=== PATIENT | female | born 1965 | race Asian ===

== ENCOUNTER 2018-08-26 12:51 | Emergency (ER) | payer SELFPAY ==
[2018-08-26 12:58] VITALS: BP 147/95; PULSE 74; RESP 18; TEMP 37; O2SAT 99
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
--- NOTE | 2018-08-26 18:06 | NUR.NOTE ---
Nursing Note: Referral faxed to [facility] with Dr. Ruiz supply and distribution manager for telephone call. Pt used to have Eyad Lujan but pt left the area and has now returned. She prefers not to go back to him. Shanae Chen.
== END 2018-08-26 15:19 | disposition home or self-care (01) ==
LOC: ER 13:54
PROVIDERS: Emergency Provider Emergency Medicine; PCP Specialist/Technologist Athletic Trainer
DX: M17.12 Unilateral primary osteoarthritis, left knee (principal)
CPT/HCPCS: 29505; 99283; 99282; L1820

== ENCOUNTER 2018-11-06 17:01 | Emergency (ER) | payer SELFPAY ==
[2018-11-06 17:05] VITALS: BP 152/94; PULSE 62; RESP 14; TEMP 36.9; O2SAT 99
[2018-11-06 17:22] LABS: Bilirubin Negative (Negative); Blood Negative (Negative); Clarity Clear (Clear); Glucose Negative (Negative); Ketones Negative (Negative); Leukocyte Esterase Negative (Negative); Nitrite Negative (Negative); Urobilinogen 0.2 EU/dL (Up TO 0.2); pH 5.5 (5-8)
--- NOTE | 2018-11-06 17:55 | DI.CT_ITS ---
SYMPTOM/DIAGNOSIS: INCONTINENCE OF URINE, LT LOW ABD DISCOMFORT ABDOMEN AND PELVIC CT: CT examination of the abdomen and pelvis was performed with a bolus infusion of 91 cc's of Omnipaque 350. Images obtained through the lung bases are unremarkable. Note is made of an apparent 2 cm. hepatic cyst. Gallbladder is CT normal and no biliary dilatation is seen. Pancreas is unremarkable. Question wall thickening of the gastric antrum,. this is a nonspecific finding. Spleen is unremarkable in appearance. Abdominal aorta shows variant anatomy but is otherwise unremarkable. No abdominal or pelvic adenopathy. Small fat containing umbilical hernia noted. Adrenals are unremarkable except for a questioned 1 cm. left adrenal nodule of intermediate attenuation, this may not represent a discrete mass but may represent adrenal anatomy variant. MR of the adrenals suggested for further evaluation. There is a tiny non obstructing left mid pole renal calculus. Otherwise the kidneys and ureters are unremarkable in appearance with no evidence of obstruction. BEND SORTER structures are unremarkable. Appendix is normal. No evidence of diverticulitis or bowel obstruction. CONCLUSION: 1. Non obstructing left renal calculus. 2. Question adrenal nodule on the left, MR adrenal protocol scan suggested.
[2018-11-06 18:26] LABS: Abs Immature Grans 0.02 k/cumm (0.0-0.09); Absolute Basophil Count 0.07 k/cumm (0.0-0.2); Absolute Eosinophil Count 0.19 k/cumm (0.0-0.7); Absolute Lymphocyte Count 2.53 k/cumm (1.2-3.4); Absolute Monocyte Count 0.44 k/cumm (0.11-0.7); Eosinophils % 2.6; HCT 43.8 % (36.0-46.0); HGB 14.6 g/dL (12.0-15.5); Immature Grans % 0.3; Lymphocytes % 34.4; Mean Corp. HGB Concentration 33.3 g/dL (32.0-36.0); Mean Corpuscular Hemoglobin 31.5 pg (27.0-33.0); Mean Corpuscular Volume 94.4 fL (80-95); Mean Platelet Volume 9.7 fL (8.0-11.0); Neutrophils % 55.7; Platelet Count 376 x1000/uL (130-400); RBC 4.64 m/cumm (4.00-5.20); RBC Distribution Width 11.8 % (11.7-14.6); White Blood Cell Count 7.35 k/cumm (4.4-10.8)
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
[2018-11-06 18:44] LABS: ALT 18 U/L (12-78); AST 17 U/L (15-37); Albumin 4.1 g/dL (3.4-5.0); Alkaline Phosphatase 70 U/L (46-116); Anion Gap 10.5 mmol/L (3-11); BUN 18 mg/dL (7-18); Bilirubin, Total 0.3 mg/dL (0.2-1.0); CO2 27.5 mmol/L (21.0-32.0); CREATININE 1.09 mg/dL (0.55-1.02); Calcium 9.7 mg/dL (8.5-10.1); Chloride 105 mmol/L (98-107); Estimated GFR 52.11 (mL/min/1.73m2); Glucose 101 mg/dL (70-100); Lipase 230 U/L (73-393); Potassium 3.8 mmol/L (3.5-5.1); Sodium 143 mmol/L (136-145); Total Protein 8.8 g/dL (6.4-8.2)
[2018-11-06] MEDS: Normal Saline Flush 10 ML SYR IVP (18:44)
[2018-11-06] MEDS: Normal Saline 1,000 ML 125 ML IV (18:45)
[2018-11-06] MEDS: Omnipaque 350 MG/ML 100 ML BTL IJ (19:16)
--- NOTE | 2018-11-06 19:42 | DI.VRAD_ITS ---
EXAM: CT Abdomen and Pelvis With Contrast EXAM DATE/TIME: 11/06/2018 5:57 PM CLINICAL HISTORY: 53 years old, female; Abdominal pain; Localized; Left lower quadrant (llq); Patient HX: Incontinence urine, left lower abd discomfort 2mo TECHNIQUE: Imaging protocol: Axial computed tomography images of the abdomen and pelvis with intravenous contrast. Coronal and sagittal reformatted images were created and reviewed. COMPARISON: RENAL,PELVIS TRANSVAG US 03/05/2017 2:04 PM FINDINGS: Lungs: Linear atelectasis or scarring in the left lower lung. Liver: Hepatic cyst. Gallbladder and bile ducts: Normal. No calcified stones. No ductal dilation. Pancreas: Normal. No ductal dilation. Spleen: Normal. No splenomegaly. Adrenals: 1.1 cm 80 Hounsfield unit nodular region, left adrenal gland, axial image 28. This does not fulfill the criteria for an adenoma. Kidneys and ureters: Nonobstructive left renal calculus, axial image 34. No hydronephrosis. Stomach and bowel: Normal. No obstruction. No mucosal thickening. Appendix: No evidence of appendicitis. Intraperitoneal space: Normal. No free air. No significant fluid collection. Vasculature: Normal. No abdominal aortic aneurysm. Lymph nodes: Normal. No enlarged lymph nodes. Bladder: Some midline urinary bladder thickening anteriorly, axial image 73; sagittal image 65. Reproductive: Nonspecific gas within the vaginal canal. This can be seen normally or with recent instrumentation/infection. Bones/joints: No acute fracture. No dislocation. Skeletal degenerative changes. Disc space narrowing, L4-5, with corresponding vacuum phenomenon. Scattered sclerotic foci in the bones. In the absence of known malignancy, these most likely represents bone islands. Soft tissues: Small fat containing umbilical hernia. IMPRESSION: 1. Some midline urinary bladder thickening anteriorly. This can be seen with infection or under distention. Pathology not entirely excluded. 2. Nonobstructive left renal calculus. 3. Nodular region in the left adrenal gland which does not fulfill the criteria for an adenoma. This can be further evaluated with an adrenal mass protocol CT scan or MRI. Other findings/details as above. Dictated and Authenticated by: Tonya Hayward MD. Ordering:ELVIS Salazar MD
[2018-11-06 19:58] VITALS: BP 157/81; PULSE 68; RESP 16; O2SAT 100
[2018-11-06] MEDS: Cephalexin 500 MG CAP PO (20:43)
--- NOTE | 2018-11-06 21:56 | NUR.NOTE ---
faxed referal 11/06/18Nursing Note:
== END 2018-11-06 20:48 | disposition home or self-care (01) ==
PROVIDERS: Emergency Provider Student in an Organized Health Care Education/Training Program; PCP Specialist/Technologist Athletic Trainer
DX: E27.9 Disorder of adrenal gland, unspecified (principal); R03.0 Elevated blood-pressure reading, without diagnosis of hypertension; R39.81 Functional urinary incontinence; N20.0 Calculus of kidney
CPT/HCPCS: 36415; 80053; 83690; 96360; 96361; 99285; 74177; 81003; 85025; 87086; 99284; J3490

== ENCOUNTER 2018-11-18 00:45 | Outpatient (CLI) | payer SELFPAY ==
[2018-11-18] MEDS: Normal Saline Flush 10 ML SYR IVP (15:30)
[2018-11-18] MEDS: Gadoterate meglumine 20 ML VIAL 11 ML IVP (15:31)
--- NOTE | 2018-11-18 15:37 | DI.MRI_ITS ---
SYMPTOM/DIAGNOSIS: ADRENAL NODULE E27.8 MRI ABDOMEN: Comparison is made with CT of the abdomen and pelvis dated 06 November 2018. The exam is limited by patient motion and equipment limitations. Field of view includes the entire upper abdomen. No adrenal nodule is visible. The findings on CT appear to be elated to vascular structures adjacent to the adrenal and not an actual nodule.
== END 2018-11-18 01:05 ==
PROVIDERS: PCP Specialist/Technologist Athletic Trainer; Visit Provider Physician Assistant Medical
DX: E27.8 Other specified disorders of adrenal gland (principal)
CPT/HCPCS: 74183

== ENCOUNTER 2019-01-12 12:58 | Outpatient (CLI) | payer SELFPAY ==
--- NOTE | 2019-01-12 15:58 | DI.RAD_ITS ---
EXAM: XR HAND LT COMPLETE INDICATION: LT HAND PAIN [id number]. COMPARISON: No exams were available for comparison TECHNIQUE: 2D digital imaging was performed. FINDINGS: No bony or joint abnormality is seen.
== END 2019-01-12 13:18 ==
PROVIDERS: PCP Specialist/Technologist Athletic Trainer; Visit Provider Internal Medicine Hematology
DX: M79.642 Pain in left hand (principal)
CPT/HCPCS: 73130

== ENCOUNTER 2019-05-25 12:26 | Outpatient (REF) | payer OTHER, SELFPAY ==
--- NOTE | 2019-05-25 10:30 | PAPFT_PTH ---
PATIENT: Charo Horton LOC: [facility]#:[id number] AGE/SX: 53/F ROOM: RE05/25/[address]: Estefanía Todd : 1965 BED: DIS: 05/25/2019 SPEC #: [id number] RECD: 05/26/19 12:41 STATUS: PRATIMA RELuis Miguel #: [id number] RUBEN: 05/25/19 10:[address]: Estefanía Todd DEPT: FA Cytology RECD BY: Opal Stout ENTERED: 05/26/19 12:41 SP TYPE: PAPFT OTHR DR: Dharmesh Lujan Tissues: 1 - CX/ENDOCX FOR PAP SMEARS Procedures: PAP THIN PREP/[facility] Screening HPV DNA PROBE Comments: [id number]
[2019-05-27 08:59] LABS: Hepatitis B Surface Ag Negative (Negative)
[2019-05-27 10:23] LABS: HIV-1/2 Ag & Ab Screen Negative (Negative)
[2019-05-27 11:14] LABS: Syphilis Serology (RPR) Negative (Negative)
[2019-05-27 15:17] LABS: Chlamydia Result Negative (Negative); GC Result Negative (Negative)
== END 2019-05-25 12:46 ==
LOC: NCHCN 12:26
PROVIDERS: PCP Specialist/Technologist Athletic Trainer; Visit Provider Nurse Practitioner Family
DX: Z11.3 Encounter for screening for infections with a predominantly sexual mode of transmission (principal); Z91.49 Other personal history of psychological trauma, not elsewhere classified; Z11.4 Encounter for screening for human immunodeficiency virus [HIV]; Z12.4 Encounter for screening for malignant neoplasm of cervix; Z11.59 Encounter for screening for other viral diseases; Z01.419 Encounter for gynecological examination (general) (routine) without abnormal findings
CPT/HCPCS: 87340; 87389; 87491; 87591; 88142; 86592; 87480; 87510; 87624; 87660

== ENCOUNTER 2019-07-08 09:06 | Outpatient (REF) | payer OTHER, SELFPAY ==
[2019-07-08 19:33] LABS: Calculated LDL 179 mg/dL (<100); Cholesterol 250 mg/dL (<200); HDL Cholesterol 53 mg/dL (40-60); Triglyceride 90 mg/dL (<150)
[2019-07-08 19:43] LABS: Uric Acid 9.5 mg/dL (2.6-6.0)
== END 2019-07-08 09:26 ==
LOC: NCHCN 09:06
PROVIDERS: PCP Specialist/Technologist Athletic Trainer; Visit Provider Nurse Practitioner Family
DX: M25.562 Pain in left knee (principal); Z00.00 Encounter for general adult medical examination without abnormal findings; G56.02 Carpal tunnel syndrome, left upper limb; Z13.220 Encounter for screening for lipoid disorders
CPT/HCPCS: 80061; 84550

== ENCOUNTER 2019-09-07 09:52 | Outpatient (REF) | payer MEDICAID, SELFPAY ==
[2019-09-07 20:00] LABS: Anion Gap 7.1 mmol/L (3-11); BUN 17 mg/dL (7-18); CO2 28.9 mmol/L (21.0-32.0); CREATININE 0.91 mg/dL (0.55-1.02); Calcium 9.3 mg/dL (8.5-10.1); Chloride 107 mmol/L (98-107); Glucose 110 mg/dL (74-106); Potassium 4.2 mmol/L (3.5-5.1); Sodium 143 mmol/L (136-145); Uric Acid 7.1 mg/dL (2.6-6.0)
== END 2019-09-07 10:12 ==
LOC: NCHCN 09:52
PROVIDERS: PCP Specialist/Technologist Athletic Trainer; Visit Provider Nurse Practitioner Family
DX: E78.5 Hyperlipidemia, unspecified (principal); E79.0 Hyperuricemia without signs of inflammatory arthritis and tophaceous disease
CPT/HCPCS: 80048; 84550

== ENCOUNTER 2019-10-15 20:03 | Emergency (ER) | payer MEDICAID, SELFPAY ==
[2019-10-15 20:11] VITALS: BP 173/91; PULSE 74; RESP 16; TEMP 36.3; O2SAT 100
--- NOTE | 2019-10-15 20:15 | DI.CT_ITS ---
EXAM: CT HEAD NECK WO CLINICAL HISTORY: posterior head and neck discomfort. TECHNIQUE: Imaging Protocol: Axial computed tomography images with coronal and sagittal reformatted images were created and reviewed COMPARISON: No exams were available for comparison FINDINGS: Head CT Ventricles and Extra axial spaces: Normal in size and morphology for the patient's age. Hemorrhage: None. Cerebral parenchyma: Normal. Midline shift: None. Brainstem/Cerebellum: Normal. Calvarium: Normal. Visualized Paranasal sinuses/Mastoids: Clear. Cervical Spine CT BONES: Vertebral body heights are maintained. There are mild degenerative disc changes, greatest at C3-4.. Alignment is normal. There is no evidence of acute fracture. SOFT TISSUES: No paraspinal hematoma. The airway appears intact. No pneumothorax at the visualized l davie apices. IMPRESSION: No acute abnormality. RADIATION DOSE DELIVERED: Total DLP DATA REPOSITORY: All CT scans at this facility are submitted to the National Radiology Data Registry (NRDR) Dose Index Registry (DIR) with the [employer] (ACR). RADIATION OPTIMIZATION: All CT scans at this facility use at least one of these dose optimization te chniques: automated exposure control; mA and/or kV adjustment per patient size (includes targeted exa ms where dose is matched to clinical indication); or iterative reconstruction.
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
[2019-10-15] MEDS: Cyclobenzaprine 10 MG TAB PO (20:27)
--- NOTE | 2019-10-15 21:00 | DI.VRAD_ITS ---
PROCEDURE INFORMATION: Exam: CT Head Without Contrast Exam date and time: 10/15/2019 8:25 PM Age: 54 years old Clinical indication: Other: Posterior head and neck discomfort TECHNIQUE: Imaging protocol: Computed tomography of the head without contrast. COMPARISON: No relevant prior studies available. FINDINGS: Brain: Normal. No hemorrhage. Unremarkable white matter. No mass effect. Ventricles: Normal. No ventriculomegaly. Bones/joints: Unremarkable. No acute fracture. Sinuses: Visualized sinuses are unremarkable. No fluid levels. Mastoid air cells: Visualized mastoid air cells are well aerated. Soft tissues: Unremarkable. IMPRESSION: No evidence for acute intracranial abnormality. PROCEDURE INFORMATION: Exam: CT Cervical Spine Without Contrast Exam date and time: 10/15/2019 8:25 PM Age: 54 years old Clinical indication: Other: Posterior head and neck discomfort TECHNIQUE: Imaging protocol: Computed tomography images of the cervical spine without contrast. COMPARISON: No relevant prior studies available. FINDINGS: Vertebrae: Cervical spondylosis with mild central stenosis C3-C4. Vertebral body height well preserved. C2-C3: No significant disc protrusion. No severe spinal canal stenosis. No significant neural foraminal narrowing. C3-C4: No significant disc protrusion. No severe spinal canal stenosis. No significant neural foraminal narrowing. C4-C5: No significant disc protrusion. No severe spinal canal stenosis. No significant neural foraminal narrowing. C5-C6: No significant disc protrusion. No severe spinal canal stenosis. No significant neural foraminal narrowing. C6-C7: No significant disc protrusion. No severe spinal canal stenosis. No significant neural foraminal narrowing. C7-T1: No significant disc protrusion. No severe spinal canal stenosis. No significant neural foraminal narrowing. Soft tissues: Unremarkable. Vasculature: Bilateral calcified carotid plaque. Lungs: Lung apices are normal. IMPRESSION: Mild spondylosis with stenosis C3-C4. No acute abnormality evident. Dictated and Authenticated by: Geovanna Knight MD. Ordering:DARRON Jordan MD
[2019-10-15 21:18] VITALS: BP 146/94; PULSE 60; RESP 16; TEMP 36.7; O2SAT 100
[2019-10-15] MEDS: Cyclobenzaprine 10 MG TAB, 3 TABS/BTL PO (21:37)
== END 2019-10-15 22:15 | disposition home or self-care (01) ==
PROVIDERS: Emergency Provider Emergency Medicine; PCP Nurse Practitioner Family
DX: R51 Headache (principal); M54.2 Cervicalgia; M62.838 Other muscle spasm
CPT/HCPCS: 99284; 70450; 70490

== ENCOUNTER 2020-01-10 13:23 | Observation (INO) | payer MEDICAID, SELFPAY ==
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
[2020-01-10 13:33] VITALS: BP 134/87; PULSE 72; RESP 18; TEMP 36.6; O2SAT 97
[2020-01-10 13:58] LABS: Abs Immature Grans 0.03 10^3/uL (0.0-0.06); Absolute Basophil Count 0.05 10^3/uL (0.0-0.2); Absolute Eosinophil Count 0.17 10^3/uL (0.0-0.7); Absolute Lymphocyte Count 1.98 10^3/uL (1.2-3.4); Absolute Monocyte Count 0.52 10^3/uL (0.1-0.8); Absolute Neutrophil Count 5.67 10^3/uL (1.2-6.7); Basophils % 0.6; HCT 37.2 % (36.0-46.0); HGB 13.5 g/dL (11.2-15.7); Immature Grans % 0.4; Lymphocytes % 23.5; MCH 32.5 pg (27.0-33.0); MCHC 36.3 % (32.0-36.0); MCV 89.4 fL (80-95); MPV 8.7 fL (8.0-11.0); Monocytes % 6.2; Neutrophils % 67.3; Nucleated RBC 0 %; Platelet Count 452 10^3/uL (130-400); RBC 4.16 10^6/uL (3.93-5.22); RDW 11.5 % (11.7-14.6); RDW-SD 36.7 fL; WBC 8.42 10^3/uL (4.4-10.8)
[2020-01-10 14:17] LABS: ALT 23 U/L (14-59); AST 28 U/L (15-37); Alkaline Phosphatase 75 U/L (46-116); Anion Gap 6.4 mmol/L (3-11); BUN 10 mg/dL (7-18); Bilirubin, Total 0.6 mg/dL (0.2-1.0); CO2 28.6 mmol/L (21.0-32.0); CREATININE 0.75 mg/dL (0.55-1.02); Calcium 9.3 mg/dL (8.5-10.1); Chloride 87 mmol/L (98-107); Glucose 132 mg/dL (74-106); Lipase 162 U/L (73-393); Magnesium 1.7 mg/dL (1.8-2.4); Potassium 4.2 mmol/L (3.5-5.1); Total Protein 8.3 g/dL (6.4-8.2)
[2020-01-10 14:18] LABS: Sodium 122 mmol/L (136-145); Troponin I < 0.05 ng/mL (<0.06)
[2020-01-10] MEDS: Normal Saline 1,000 ML 1000 ML IV (14:20)
[2020-01-10] MEDS: LORazepam 2 MG/ML VIAL 0.5 MG IVP (14:33)
[2020-01-10] MEDS: Ondansetron 4 MG/2 ML VIAL IVP (14:34)
[2020-01-10] MEDS: MAGNESIUM SULFATE 1 GM/100 ML BAG IVPB (14:40)
--- NOTE | 2020-01-10 14:45 | RT.EKG_ITS ---
APPROVED REPORT Exam: Resting ECG Patient Location: E HR:64 bpm ECG Measurements Heart Rate 64 AXIS ND 142 P 34 QRSd 95 QRS 6 QT 441 T 25 QTc 454 Conclusion Sinus rhythm...normal P axis, V-rate 60- 99
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
--- NOTE | 2020-01-10 15:44 | NUR.NOTE ---
Pt ordered dinner and is up to the side of bead to eat.
[2020-01-10 16:25] VITALS: BP 147/83; PULSE 75; RESP 18; TEMP 36.6; O2SAT 99
[2020-01-10] MEDS: Pantoprazole 40 MG VIAL IVP (17:03)
[2020-01-10] MEDS: Normal Saline Flush 10 ML SYR ×2 (17:03→21:18)
[2020-01-10 19:20] VITALS: BP 115/77; PULSE 72; RESP 18; TEMP 37.4; O2SAT 100
[2020-01-10 19:47] LABS: Anion Gap 4.5 mmol/L (3-11); BUN 13 mg/dL (7-18); CO2 29.5 mmol/L (21.0-32.0); CREATININE 1.03 mg/dL (0.55-1.02); Calcium 8.7 mg/dL (8.5-10.1); Chloride 100 mmol/L (98-107); Estimated GFR 55.43 (mL/min/1.73m2); Glucose 117 mg/dL (74-106); Potassium 4.1 mmol/L (3.5-5.1); Sodium 134 mmol/L (136-145)
[2020-01-10] MEDS: Oxybutynin 5 MG TAB PO (19:57)
[2020-01-10] MEDS: Melatonin 3 MG TAB 9 MG PO (21:17)
[2020-01-10 21:38] LABS: Osmolality Serum 259 mOsm/kg (275-295)
[2020-01-11 03:00] VITALS: BP 100/67; PULSE 74; RESP 18; TEMP 36.9; O2SAT 98
[2020-01-11 07:13] LABS: Anion Gap 5.6 mmol/L (3-11); BUN 16 mg/dL (7-18); CO2 27.4 mmol/L (21.0-32.0); CREATININE 0.97 mg/dL (0.55-1.02); Calcium 8.8 mg/dL (8.5-10.1); Chloride 103 mmol/L (98-107); Glucose 107 mg/dL (74-106); Magnesium 2.2 mg/dL (1.8-2.4); Potassium 4.2 mmol/L (3.5-5.1); Sodium 136 mmol/L (136-145)
[2020-01-11 07:36] VITALS: BP 100/64; PULSE 54; RESP 19; TEMP 37; O2SAT 97
[2020-01-11 08:11] LABS: Bilirubin Negative (Negative); Blood Negative (Negative); Clarity Clear (Clear); Glucose Negative (Negative); Ketones Negative (Negative); Leukocyte Esterase Negative (Negative); Nitrite Negative (Negative); Specific Gravity 1.015 (1.005-1.025); Urobilinogen 0.2 EU/dL (Up TO 0.2)
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
[2020-01-11 08:16] LABS: COVID-19 RT-PCR UVMMC Result Negative (Negative)
[2020-01-11] MEDS: Vitamins B Comp w/C TAB 1 TAB PO (09:13)
[2020-01-11] MEDS: Oxybutynin 5 MG TAB PO (09:13)
[2020-01-11] MEDS: Allopurinol 100 MG TAB PO (09:13)
[2020-01-11 11:03] VITALS: BP 104/65; PULSE 70; RESP 19; TEMP 36.9; O2SAT 98
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
[2020-01-11 19:50] LABS: Osmolality, Urine 253 mOsm/kg (150-1,150)
--- NOTE | 2020-01-20 13:41 | PDOC.CMPRO ---
Care Management Progress Note [facility] called to gather information re: Charo's referral. She reported speaking with Charo as well. CM provided case review and information, as well as action items for referral. Leonarda Alvares reported Zee Real, [facility] RN would likely be outreaching as well as she would be working with Charo moving forward.
== END 2020-01-11 15:10 | disposition home or self-care (01) ==
LOC: ER 16:14 → MS 16:21
PROVIDERS: Admitting Provider Internal Medicine; Emergency Provider Physician Assistant; PCP Nurse Practitioner Family; Visit Provider Internal Medicine
DX: E87.1 Hypo-osmolality and hyponatremia (principal); Z79.899 Other long term (current) drug therapy; M10.9 Gout, unspecified; R11.2 Nausea with vomiting, unspecified
CPT/HCPCS: 36415; 80048; 80053; 83690; 83935; 93005; 96361; 96365; 99217; 99219; 99285; U0003; 81003; 83735; 83930; 84484; 85025; 93010; G0378; J2060; J2405; J3475

== ENCOUNTER 2020-01-19 09:31 | Outpatient (REF) | payer MEDICAID, SELFPAY ==
[2020-01-19 19:15] LABS: Uric Acid 6.5 mg/dL (2.6-6.0)
== END 2020-01-19 09:51 ==
LOC: NCHCN 09:31
PROVIDERS: PCP Nurse Practitioner Family; Visit Provider Nurse Practitioner Family
DX: E79.0 Hyperuricemia without signs of inflammatory arthritis and tophaceous disease (principal)
CPT/HCPCS: 84550

== ENCOUNTER 2020-02-23 01:23 | Outpatient (CLI) | payer MEDICAID, SELFPAY ==
--- NOTE | 2020-02-23 08:20 | DI.MAMMO_ITS ---
EXAM: MG MAMMO SCREENING CLINICAL HISTORY: SCREENING,[facility],Z00.00. TECHNIQUE: Bilateral full field digital CC and MLO mammographic images were obtained with 3D tomosyn thesis and utilizing computer aided detection (CAD). COMPARISON: Prior mammogram performed March 2017. FINDINGS: There are no CAD designation. In the left breast there is a noncalcified nodule located 3.5 centimetres in from the nipple, measuri ng 10 x 8 millimeters. This is in the lower outer quadrant. There are no malignant-appearing microc alcification groups in this region nor elsewhere in either breast. No focal findings in the opposite -right breast. There is no new architectural distortion nor skin thickening-retraction. IMPRESSION: 1. In the left breast there is a noncalcified lobulated nodule measuring 11 by 8 millimeters, a 3.5 c entimetres in from nipple. Spot compression 3D view plus left breast ultrasound recommended. BI-RADS Category 0 - Assessment Incomplete: Need additional imaging evaluation Breast Density - Category B - Scattered areas of fibroglandular density Breast density Category C or D implies that the patient has dense breast tissue. Dense breast tissue can make it harder to find cancer on a mammogram. Dense breast tissue is also associated with an incr eased risk of breast cancer. This information about the result of the mammogram report was provided to the patient to raise their awareness. Use this report when you speak with the patient about their risks for breast cancer, which includes their family history. At that time, you may recommend additional screening tests (Ultrasoun d or MRI) as these tests may add significant information. A negative radiographic report should not delay biopsy if a dominant or clinically suspicious mass is present. Up to ten percent of cancers are not identified on mammography. A negative report may reinforce clinical impression. Adenosis and dense breasts may obscure an underlying neoplasm. False positive reports average 6 to 10%. Patient will receive a letter notifying them of these results.
== END 2020-02-23 01:43 ==
PROVIDERS: PCP Nurse Practitioner Family; Visit Provider Nurse Practitioner Family
DX: N63.23 Unspecified lump in the left breast, lower outer quadrant (principal); Z12.31 Encounter for screening mammogram for malignant neoplasm of breast; Z00.00 Encounter for general adult medical examination without abnormal findings
CPT/HCPCS: 77063; 77067

== ENCOUNTER 2020-03-07 00:26 | Outpatient (CLI) | payer MEDICAID, SELFPAY ==
--- NOTE | 2020-03-07 | DI.MAMMO_ITS ---
EXAM: MG MAMMO SCREEN CALL BACK UNI CLINICAL HISTORY: F/U MAMMO, LT BREAST NODULE. TECHNIQUE: Unilateral spot mammographic images were obtained with 3D tomosynthesis and utilizing C[employer]on[employer]abin puter aided detection (CAD). . Breast Ultrasound was also performed. COMPARISON: Prior mammograms dating back to , the most recent being . This additional imaging was performed due to findings described on the recent screening mammogram of . Prior mammograms dating back to 2011, the most recent being the recent screening mammo 02/23/2020. FINDINGS: Additional mammographic views performed today reveal this nodule to be a true finding. Ultrasound performed today reveals reveals this nodule to be a wider than taller benign appear cyst m easuring 10 x 5 millimeters.. Is located at 6 o'clock position IMPRESSION: There is a 10 x 5 millimeter benign cyst which corresponds to the nodule on the mammogram. This is a t 6 o'clock position Appropriate follow-up is to keep this patient yearly mammogram schedule, with earlier imaging if a se lf detected breast change is noted. Recommend repeat ultrasound next year.. BI-RADS Category 2 - Benign Findings Breast Density - Category B - Scattered areas of fibroglandular density Breast density Category C or D implies that the patient has dense breast tissue. Dense breast tissue can make it harder to find cancer on a mammogram. Dense breast tissue is also associated with an incr eased risk of breast cancer. This information about the result of the mammogram report was provided to the patient to raise their awareness. Use this report when you speak with the patient about their risks for breast cancer, which includes their family history. At that time, you may recommend additional screening tests (Ultrasoun d or MRI) as these tests may add significant information. A negative radiographic report should not delay biopsy if a dominant or clinically suspicious mass is present. Up to ten percent of cancers are not identified on mammography. A negative report may reinforce clinical impression. Adenosis and dense breasts may obscure an underlying neoplasm. False positive reports average 6 to 10%. Patient will receive a letter notifying them of these results. Ten by 5 millimeters
--- NOTE | 2020-03-07 | DI.US_ITS ---
EXAM: US BREAST LT LIMITED CLINICAL HISTORY: F/U MAMMO, LT BREAST NODULE TECHNIQUE: Ultrasound left breast performed using standard protocol. COMPARISON: Recent 02/23/2020 mammo was reviewed FINDINGS: There is 10 x 5 millimeter benign cyst at the 6 o'clock position which corresponds to the finding on the mammogram. No solid lesions. Benign lymph nodes noted in the ipsilateral axilla. IMPRESSION: There is a benign 10 x 5 millimeter cyst at the 6 o'clock position which corresponds to the mammograp hic finding. BI-RADS Category 2 - Benign Findings DATA REPOSITORY:
== END 2020-03-07 00:46 ==
PROVIDERS: PCP Nurse Practitioner Family; Visit Provider Nurse Practitioner Family
DX: N60.02 Solitary cyst of left breast (principal)
CPT/HCPCS: 76642; 77063; 77067

== ENCOUNTER 2020-04-25 16:01 | Outpatient (REF) | payer MEDICAID, SELFPAY ==
[2020-04-25 17:06] LABS: Anion Gap 8.4 mmol/L (3-11); BUN 16 mg/dL (7-18); CO2 28.6 mmol/L (21.0-32.0); CREATININE 0.9 mg/dL (0.55-1.02); Calcium 9.7 mg/dL (8.5-10.1); Chloride 105 mmol/L (98-107); Glucose 113 mg/dL (74-106); Magnesium 2.1 mg/dL (1.8-2.4); Potassium 4.5 mmol/L (3.5-5.1); Sodium 142 mmol/L (136-145); TSH 1.95 uIU/mL (0.36-3.74); Uric Acid 5.4 mg/dL (2.6-6.0)
[2020-04-25 17:53] LABS: HDL Cholesterol 66 mg/dL (40-60); LDL CHOLESTEROL 144 mg/dL (<100)
[2020-04-26 04:25] LABS: Vitamin D 25 Total 68.3 ng/ml (30-100)
== END 2020-04-25 16:02 | disposition home or self-care (01) ==
LOC: NCHCN 16:01
PROVIDERS: PCP Nurse Practitioner Family; Visit Provider Nurse Practitioner Family
DX: M54.2 Cervicalgia (principal); E83.42 Hypomagnesemia; E87.1 Hypo-osmolality and hyponatremia; E79.0 Hyperuricemia without signs of inflammatory arthritis and tophaceous disease; R53.83 Other fatigue; M85.88 Other specified disorders of bone density and structure, other site
CPT/HCPCS: 80048; 82306; 83721; 83718; 83735; 84443; 84550

== ENCOUNTER 2020-08-03 04:21 | Outpatient (CLI) | payer MEDICAID, SELFPAY ==
--- NOTE | 2020-08-03 13:41 | DI.RAD_ITS ---
Exam(s) XR ABDOMEN FLAT UPRIGHT EXAM: 2D digital imaging was performed. CLINICAL HISTORY: KIDNEY STONE, N20.0, LOW BACK PAIN, M54.5. COMPARISON: CT CT ABDOMEN PELVIS W from 11/06/[address] ABDOMEN PELVIS W from 11/06/2018 TECHNIQUE: Supine and uprightSupine and Lateral views of the abdomen was performed. FINDINGS: BOWEL GAS PATTERN: Nondistended.No free air. Moderate quantity of stool. CALCIFICATIONS: No radiopaque calcifications projecting in the region of the kidneys.. Phlebolith ri ght lower pelvis. OSSEOUS STRUCTURES: Degenerative changes at L4-5 and L5-S1.. IMPRESSION: 1. Nonobstructive bowel gas pattern. 2. No radiopaque calculi. 3. No free air. DATA REPOSITORY: RADIATION DOSE DELIVERED:
--- NOTE | 2020-08-03 13:41 | DI.RAD_ITS ---
Exam(s) XR LUMBAR SPINE COMPLETE EXAM: XR LUMBAR SPINE COMPLETE CLINICAL HISTORY: LOW BACK PAIN, M54.5. TECHNIQUE: 2D digital imaging was performed. COMPARISON: No exams were available for comparison FINDINGS: The vertebral bodies are well maintained in height. Lower thoracic region is unremarkable. The L1-2 through L3-4 disc spaces are well maintained. There is moderate disc space narrowing at L4-5 and L5 -S1. Mild to moderate facet joint degenerative changes are seen at these levels. No spondylolysis, spondylolisthesis or scoliosis is seen. IMPRESSION: Bkey-kz-doaeabmo degenerative disc changes and facet degenerative changes at L4-5 and L5-S1. DATA REPOSITORY: RADIATION DOSE DELIVERED:
== END 2020-08-03 04:41 ==
PROVIDERS: PCP Nurse Practitioner Family; Visit Provider Nurse Practitioner Family
DX: M54.5 Low back pain (principal); M51.37 Other intervertebral disc degeneration, lumbosacral region; M47.817 Spondylosis without myelopathy or radiculopathy, lumbosacral region; N20.0 Calculus of kidney
CPT/HCPCS: 72110; 74019

== ENCOUNTER 2020-08-09 02:31 | Outpatient (CLI) | payer MEDICAID, SELFPAY ==
--- NOTE | 2020-08-09 | DI.US_ITS ---
Exam(s) US PAIN CLINIC NEEDLE GUIDANCE EXAM: RT UPPER TRAPEZIUS SCALENE TPI, ULTRASOUND GUIDED,CERVICAL MYOFASCIAL PAIN COMPARISON: US US BREAST LT LIMITED from 03/07/2020 TECHNIQUE: Ultrasound performed using standard protocol. FINDINGS: Ultrasound guidance was provided during therapeutic injection of the right trapezius muscle. IMPRESSION: DATA REPOSITORY:
[2020-08-09 07:59] VITALS: BP 120/87; PULSE 70; RESP 17; TEMP 36.7; O2SAT 99
[2020-08-09 08:43] VITALS: PULSE 79; O2SAT 100
--- NOTE | 2020-08-09 08:45 | PDOC.PAIN_ITS ---
Pain Clinic Procedure Note Procedure Note Procedure Note: ULTRASOUND GUIDED [RIGHT TRAPEZIUS MUSCLE TRIGGER POINT INJECTIONS Date of procedure: August 09, 2020 Pre-Procedural Evaluation: Charo Horton has been referred to the [facility] Management [facility] for an Ultrasound Guided right trapezius muscle injection for a chief complaint of right upper shoulder/neck pain. Pre-procedure Pain Score: 3/10 Dx: Muscle pain Patient was interviewed and the medical record reviewed. There were no medical, pharmacologic, radiographic, or other structural contraindications to preforming an ultrasound guided injection. Risks and expected side effects as well as potential benefits of the procedure were reviewed. The patient consent form was signed and witnessed. Standard time-out procedure was performed. The use of direct ultrasound visualization of the needle (rather than a non- guided injection) was required to increase patient safety by excluding inadvertent intramuscular, intratendinous, or intraneural needle placement and minimizing bleeding by avoiding osteochondral or vascular injury from the needle. Additionally, the increased accuracy of placement may increase clinical effectiveness and will allow higher diagnostic specificity when evaluating effectiveness of this injection. Procedure Description: The patient was placed in the prone position and automated blood pressure cuff and pulse oximeter applied for monitoring during the procedure and recorded in the medical record. Pre-injection ultrasound scanning of the area of interest was performed using a linear transducer, identifying relevant anatomy, landmarks, and neurovascular structures allowing for optimal needle path. The site was then prepared in the usual sterile fashion, using thorough Chlorhexadine preparation of the skin and sterile draping. The same ultrasound transducer was then passed into the sterile field using sterile probe cover and sterile ultrasound gel. The injection target was again visualized. Skin and subcutaneous tissues were anesthetized with 2 mL of 1% Lidocaine. A 21 guage Pajunk ultrasound needle was placed under live ultrasound guidance, using an in-plane approach, to the target area. After visualization of the needle tip at the target area, a mixture of 3 mL 1% Lidocaine and 1 mL Dexamethasone (40 mg/cc), totaling 4 mL of injectate was delivered after negative aspiration for blood. Ultrasound images were captured and stored for documentation purposes. Post-procedure Pain Score:0/10 Vital signs were stable throughout the procedure and were as recorded in the docflowsheet by the nursing staff. Follow up plans and appointments were discussed with the patient.Post procedure instruction was given as documented in nursing documentation and having met discharge criteria, they were discharged from the Pain Management Center. COMMENTS: She did well with the procedure Kumar Owen DO, MPH Pain Management
[2020-08-09] MEDS: Lidocaine 1% Pres-Free 5 ML VIAL IJ (08:48)
[2020-08-09] MEDS: Dexamethasone Sod. Phos./Pres-Free 10 MG/ML VIAL IJ (08:48)
== END 2020-08-09 02:51 ==
PROVIDERS: PCP Nurse Practitioner Family; Visit Provider Preventive Medicine Occupational Medicine
DX: M79.18 Myalgia, other site (principal)
CPT/HCPCS: 20552; 76942

== ENCOUNTER 2020-09-21 19:03 | Emergency (ER) | payer MEDICAID, SELFPAY ==
[2020-09-21 19:08] VITALS: BP 146/96; PULSE 78; RESP 16; TEMP 36.8; O2SAT 99
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
== END 2020-09-21 19:25 | disposition home or self-care (01) ==
PROVIDERS: Emergency Provider Registered Nurse Emergency; PCP Nurse Practitioner Family
DX: T16.1XXA Foreign body in right ear, initial encounter (principal); X58.XXXA Exposure to other specified factors, initial encounter
CPT/HCPCS: 99281

== ENCOUNTER 2020-11-02 11:12 | Outpatient (REF) | payer MEDICAID, SELFPAY ==
--- NOTE | 2020-11-02 10:00 | SKI_PTH ---
PATIENT: Charo Horton LOC: [facility] U#:[id number] AGE/SX: 55/F ROOM: RE11/02/[address]: BRIDGER [place] : 1965 BED: DIS: 11/02/2020 SPEC #: [id number] RECD: 11/05/20 12:21 STATUS: PRATIMA RELuis Miguel #: [id number] RUBEN: 11/02/20 10:[address]: Efrain Burton DEPT: Surgical Specimen RECD BY: Opal Stout ENTERED: 11/05/20 12:21 SP TYPE: HILDA DIALLO DR: Estefanía Todd Tissues: 1 - SKIN BIOPSY(SHAVE/PUNCH) Procedures: SKIN LEVEL 4 Comments: [id number]
== END 2020-11-02 11:13 | disposition home or self-care (01) ==
LOC: LBN 11:12
PROVIDERS: PCP Nurse Practitioner Family; Visit Provider Physician Assistant
DX: L82.1 Other seborrheic keratosis (principal)
CPT/HCPCS: 88305